=== PATIENT | female | born 1960 | race Caucasian/White ===

== ENCOUNTER → 2019-07-15 09:00 | Outpatient (BNVA) | payer OTHER, SELFPAY | PROVIDERS: PCP Nurse Practitioner Family; Visit Provider Family Medicine | DX: R53.83 Other fatigue (principal); R53.82 Chronic fatigue, unspecified; H10.31 Unspecified acute conjunctivitis, right eye | CPT/HCPCS: 80053; 84439; 84443; 85025; 85651; 86140 ==

== ENCOUNTER → 2021-08-01 10:11 | Outpatient (BNVA) | payer OTHER, SELFPAY | PROVIDERS: Visit Provider Nurse Practitioner Family | DX: R35.0 Frequency of micturition (principal); N39.0 Urinary tract infection, site not specified; Z68.26 Body mass index [BMI] 26.0-26.9, adult | CPT/HCPCS: 81003; 87086 ==

== ENCOUNTER → 2022-11-27 17:02 | Outpatient (BNVA) | payer OTHER, SELFPAY | PROVIDERS: PCP Nurse Practitioner Family; Visit Provider Nurse Practitioner Family | DX: R03.0 Elevated blood-pressure reading, without diagnosis of hypertension (principal); E55.9 Vitamin D deficiency, unspecified | CPT/HCPCS: 80053; 80061; 82306; 84443; 85025 ==

== ENCOUNTER → 2023-04-17 14:05 | Outpatient (BNVA) | payer OTHER, SELFPAY | PROVIDERS: PCP Nurse Practitioner Family; Visit Provider Nurse Practitioner Family | DX: R50.9 Fever, unspecified (principal); R53.83 Other fatigue; M25.50 Pain in unspecified joint | CPT/HCPCS: 80053; 84443; 85025; 85651; 86140; 86160; 86162; 86200; 86235; 86255; 86376; 87400; 87426 ==

== ENCOUNTER → 2023-05-01 11:25 | Outpatient (BNVA) | payer OTHER, SELFPAY | PROVIDERS: PCP Nurse Practitioner Family; Visit Provider Nurse Practitioner Family | DX: M25.50 Pain in unspecified joint (principal); R53.83 Other fatigue; R74.8 Abnormal levels of other serum enzymes; D72.9 Disorder of white blood cells, unspecified | CPT/HCPCS: 80053; 85025; 86000; 86618; 86666; 86757 ==

== ENCOUNTER → 2023-05-07 08:26 | Outpatient (BNVA) | payer OTHER, SELFPAY | PROVIDERS: PCP Nurse Practitioner Family; Visit Provider Nurse Practitioner Family | DX: D72.9 Disorder of white blood cells, unspecified (principal) | CPT/HCPCS: 86160; 86668 ==

== ENCOUNTER → 2023-05-24 09:21 | Outpatient (BNVA) | payer OTHER, SELFPAY | PROVIDERS: PCP Nurse Practitioner Family; Visit Provider Nurse Practitioner Family | DX: L65.9 Nonscarring hair loss, unspecified (principal); D72.9 Disorder of white blood cells, unspecified; R53.83 Other fatigue | CPT/HCPCS: 82607; 84439; 86160; 86668 ==